=== PATIENT | male | born 1990 | race Caucasian/White ===

== ENCOUNTER 2020-12-01 11:29 | Emergency (ER) | payer MEDICAID ==
[~2020-12-01] VITALS: Ht 180.3 cm; Wt 100.0 kg
[2020-12-01 11:35] VITALS: BP 153/109; Ht 180.3 cm; Wt 100.0 kg
[2020-12-01] MEDS ORDERED: VOLTAREN75 MG PO (12:21)
[2020-12-01] MEDS ORDERED: CLEOCIN HCL300 MG PO (12:21)
== END 2020-12-01 12:48 | disposition home or self-care (01) ==
LOC: D.ER 11:29
DX: K04.7 Periapical abscess without sinus (principal); K08.89 Other specified disorders of teeth and supporting structures